=== PATIENT | female | born 1995 | race Caucasian/White ===

== ENCOUNTER 2017-04-01 11:42 | Emergency (ER) | payer OTHER ==
[2017-04-01 11:58] VITALS: RESP 16; TEMP 97.5
[2017-04-01 12:28] LABS: BILIRUBIN,URINE NEGATIVE (NEG); CLARITY,URINE CLEAR (CLEAR); COLOR,URINE YELLOW; GLUCOSE, URINE (UA) NEGATIVE (NEG); NITRATE,URINE NEGATIVE (NEG); OCCULT BLOOD,URINE MODERATE (NEG); PH,URINE 8.5 (5.0-8.5); PROTEIN,URINE NEGATIVE (NEG); UROBILINOGEN,URINE 0.2 mg/dL (0.2)
[2017-04-01 12:36] LABS: BACTERIA,URINE RARE; SQUAMOUS EPITHELIAL CELL,UR FEW; URINE SAMPLE TYPE CLEAN CATCH URINE
--- NOTE | 2017-04-02 08:49 | PDOC ---
General Adult HPI - General Chief Complaint: Neck / Back Complaint Stated Complaint: back pain, possible , nausea and vomiting of Date Seen by Provider: 04/01/17 Time Seen by Provider: 11:50 Source: POSITIVE: Patient, Other (Boyfriend) Exam Limitations: POSITIVE: No limitations Nurse's Notes Reviewed & Considered: Yes - History of Present Illness Initial Comment: The patient is a 22-year-old female. She states her last menstrual period was in early January. She suspects she is . She states that she did have a positive test at home 2 or 3 weeks ago and has been having some nausea and vomiting since. She is 3 para 2 with twins with one miscarriage. She states that she was having some vomiting earlier today and as she read she developed discomfort to the upper back. She denies any fevers or chills. No hematochezia. No melena, hematemesis or diarrhea. No dysuria or hematuria. She states her back discomfort is somewhat exacerbated by deep inspiration. No vaginal bleeding or discharge. Have you received a tetanus shot in the past 10 years?: Yes Body Location Affected: REPORTS: Abdomen, Back, Genitalia (Nausea and vomiting suspects ) Timing: REPORTS: Abrupt (Back pain abruptly developed when she was having vomiting from "morning sickness) Duration: 4-6 hours (Back pain as above) Severity: Mild Quality: REPORTS: "Pain", Sharpness Context: REPORTS: Other (As above) Modifying Factors: improves with: Vomiting ("Morning sickness ") Similar Symptoms Previously: No Recent Care Received: REPORTS: Denies Any Prior Injuries Related to Current Complaint?: No - Patient Home Medications Home Medications: Home Medications Amoxicillin 500 mg PO Q8H #30 cap 04/01/17 - Patient Allergies Allergies/Adverse Reactions: Allergies Allergy/AdvReac Type Severity Reaction Status Date / Time No Known Allergies Allergy Unverified 04/01/17 11:47 Past Medical History - heen HEENT History: Denies History Cardiovascular History: Denies History Respiratory History: Denies History Gastrointestinal History: Denies History Genitourinary History: Denies History Endocrine History: Denies History Musculoskeletal History: Other (please comment) Prosthesis or Implant: No Additional Musculoskeletal History: right knee surg Neurological History: Denies History Blood Disorders: Denies History History of Sexually Transmitted Diseases: No Female Reproductive History: Denies History LMP: 02/04 Obstetrical History: Delivery : 3 Para: 2 Cancer History: Denies History In Past Year Been Physically Harmed or Verbally Threatened: No History of MDRO: No History of Other Communicable Diseases: No Tobacco Use: Never Smoker Alcohol Use: None Substance Use Type: None Previous Surgical History: No Significant Family History: No pertinent family hx Past Medical History Reviewed: Reviewed - No Changes ROS - Limitations ROS Limitations: No Limitations Constitution: REPORTS: Denies Symptoms Cardiovascular: REPORTS: Denies Cardiac Symptoms Respiratory: REPORTS: Denies Resp Symptoms Neurological: REPORTS: Denies Neuro Symptoms Gastrointestinal: REPORTS: Nausea, Vomitting Endocrine: REPORTS: Denies Symptoms Musculoskeletal: REPORTS: Back Pain Genitourinary: REPORTS: Denies Symptoms Eyes: REPORTS: Denies Symptoms ENT: REPORTS: Denies Symptoms Skin: REPORTS: Denies Skin Symptoms Lympathic: REPORTS: Denies Lympathic Symptoms Immunologic: POSITIVE: Denies Symptoms Psychiatric: POSITIVE: Denies Psych Symptoms General Adult Exam - General Appearance General Appearance: POSITIVE: Alert, Cooperative, No Acute Distress, No Evidence of Trauma - HEENT HEENT: POSITIVE: Head Inspection Nml, Eyes Inspection Nml, Ears Inspection Nml, Nose Inspection Nml, Oral/Dental Inspect. Nml, Pharynx Inspect. Nml, PERRL, EOMI - Neck Neck: POSITIVE: Normal Inspection, Thyroid Normal - Respiratory Respiratory: POSITIVE: No Respiratory Distress, Breath Sounds Normal, Chest Non- Tender - Cardiovascular Cardiovascular: POSITIVE: Regular Rate & Rhythm, No Murmur, No Gallop, PMI Normal Peripheral Pulses: Radial (R): 2+, Radial (L): 2+ - Abdomen Abdomen: Soft: (All Quadrants), Normal Bowel Sounds: (All Quadrants), Denies Tenderness: (All Quadrants), No Splenomegaly: (All Quadrants), No Hepatomegaly: (All Quadrants), No Guarding: (All Quadrants), No Rebound: (All Quadrants), No Palpable Pulse: (All Quadrants), No Palpabale Mass: (All Quadrants), No Distention: (All Quadrants), No Rigidity: (All Quadrants) - Back Back: POSITIVE: Thoracic Tenderness (There is some discomfort on firm palpation over the area of T9 and T10 and over the parathoracic area at these levels.) - Skin Skin: POSITIVE: Normal Color, Warm, Dry, No Rash - Extremities Extremity: Non-Tender: (All Extremities), Normal ROM: (All Extremities), Normal Inspection: (All Extremities) - Neurological / Psychological Neurological: POSITIVE: Oriented X3, 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 Lab Results Reviewed: Yes (quantitative hCG will 136,570; urinalysis shows 5-10 red blood cells and wh) Lab Results:: Laboratory Results 04/01/17 Range/Units 12:20 HCG, Quant [id number] mIU/ML Ur Collection Type Clean catch urine Urine Color Yellow Urine Clarity Clear (CLEAR) Urine pH 8.5 (5.0-8.5) Ur Specific Horatio 1.015 (1.005-1.030) Urine Protein Negative (NEG) mg/dl Urine Glucose (UA) Negative (NEG) mg/dL Urine Ketones 15 (NEG) Urine Occult Blood Moderate (NEG) Urine Nitrate Negative (NEG) Urine Bilirubin Negative (NEG) Urine Urobilinogen 0.2 (0.2) mg/dL Ur Leukocyte Esterase Negative (NEG) Urine RBC 5-10 (NONE) /hpf Urine WBC 5-10 (NONE) Ur Squamous Epith Cells Few (NONE) Ur Renal Epithelial Cell None (NONE) Urine Crystals None Urine Bacteria Rare (NONE) Urine Casts None Urine Mucus Rare (NONE) Urine Trichomonas None (NONE) Urine Yeast None (NONE) - Patient's Progress Pain Medication Addressed: POSITIVE: Yes (Recommended Tylenol) School/Work Release Addressed: POSITIVE: Not Applicable Re-Examine Time: 12:00 Status: POSITIVE: Unchanged, Re-Examined Antibiotics Given: Yes (amoxicillin, 500 mg 3 times daily for 10 days) - Consult Counseled: POSITIVE: Patient, RE: Lab Results, RE: Radiology Results, RE: DX, RE : Need for F/U Patient Care Time - Estimated PCT Patient Care Time (In Minutes): 45 Vital Signs - VS Reviewed Vital Signs Reviewed: Yes Discharge Clinical Impression: Urinary tract infection, Muscle strain Discharge Disposition: Discharged to Home Condition: Good Prescriptions / Orders: Amoxicillin 500 mg PO Q8H #30 cap Patient Instructions Given at Discharge: Muscle Strain (ED), Urinary Tract Infection in Women (ED) Additional Instructions: Your test is positive and quantitative test is at the right level for your probable stage of . Urinalysis does show that you have a few white blood cells in your urine. I do not believe you have a kidney infection and I think your upper back pain is a result of a muscular strain occurred when you are having vomiting due to your morning sickness. We do like to treat women anytime there is white blood cells in the urine, and therefore please take amoxicillin one every 8 hours for 10 days. Follow-up with your [employer] provider or family physician in 10 days so that they can recheck his urine and make sure this problem has cleared up. Warm moist compresses to your back strain. Return anytime if condition worsens in any way. Follow Up With: NONE,NONE [Primary Care Provider] - (Instructions and medications as above. Return here anytime if condition worsens. Follow-up with your primary care provider or [employer] provider in about 10 days.)
--- NOTE | 2017-04-03 11:18 | DI ---
History: Chest pain Previous: none Findings: Lungs fully expanded and clear. No infiltrate. No pleural effusion. Heart size normal Pulmonary vasculature normal Impression Unremarkable two-view study of the chest
== END 2017-04-01 14:27 | disposition home or self-care (01) ==
LOC: ER 11:42 → MERGE 11:42 → ER 14:27
DX: O23.41 Unspecified infection of urinary tract in pregnancy, first trimester (principal); S29.012A Strain of muscle and tendon of back wall of thorax, initial encounter; O21.0 Mild hyperemesis gravidarum; M54.89 Other dorsalgia
CPT/HCPCS: 71020; 81001; 84702; 99283